=== PATIENT | male | born 1960 | race African-American/Black ===

== ENCOUNTER 2016-07-09 16:33 | Emergency (ER) | payer MEDICAID ==
[~2016-07-09] VITALS: Ht 182.9 cm; Wt 113.4 kg
[2016-07-09 17:33] LABS: BASOPHILS % (AUTO) 1.6 % (0.0-2.0); EOSINOPHILS % (AUTO) 1.6 % (0.0-3.0); LYMPHOCYTES % (AUTO) 30.1 % (20.0-45.0); MEAN CORPUSCULAR HEMOGLOBIN 33.8 PG (27.0-31.0); MEAN CORPUSCULAR HGB CONC 34.5 G/DL (32.0-36.0); MEAN CORPUSCULAR VOLUME 98 FL (80-99); MEAN PLATELET VOLUME 8.7 FL (6.5-10.1); MONOCYTES % (AUTO) 6.7 % (1.0-10.0); PLATELET COUNT 137 K/UL (150-450); RED BLOOD COUNT 4.28 M/UL (4.70-6.10); RED CELL DISTRIBUTION WIDTH 13.8 % (11.6-14.8); WHITE BLOOD COUNT 5.8 K/UL (4.8-10.8)
[2016-07-09 17:42] LABS: INR 2.8 (0.9-1.1); PROTHROMBIN TIME 29.4 SEC (9.30-11.50)
[2016-07-09] MEDS ORDERED: Cephalexin 500mg cap ORAL ONE (17:45)
[2016-07-09 18:01] LABS: ALANINE AMINOTRANSFERASE 29 U/L (3-41); ANION GAP 16 (5-15); ASPARTATE AMINO TRANSFERASE 40 U/L (5-40); CALCIUM 9.6 mg/dL (8.6-10.2); CARBON DIOXIDE 23 mEQ/L (20-30); CHLORIDE 103 mEQ/L (98-107); CREATININE 1.3 mg/dL (0.7-1.2); GLOMERULAR FILTRATION RATE > 60 mL/min (>60); HEMOLYSIS 7; POTASSIUM 3.5 mEQ/L (3.4-4.9); SODIUM 142 mEQ/L (135-145); TOTAL PROTEIN 7.6 g/dL (6.6-8.7)
[2016-07-09 18:02] VITALS: BP 111/87
[2016-07-09] MEDS ORDERED: KEFLEX500 MG ORAL (18:17)
[2016-07-09] MEDS ORDERED: TYLENOL325 MG ORAL (18:18)
[2016-07-09 20:14] VITALS: BP 100/83
--- NOTE | 2016-07-09 20:31 | Emergency Room Report ---
History of Present Illness General Chief Complaint: Alcohol Intoxication Source: Patient Present Illness HPI Patient's 56 year-old male who presented after increased leg pain. Patient was noted to be taking Coumadin. He reported having increased left ankle pain after an injury several months ago. Patient stated that he had been having persistent pain to his ankle. He reports drinking alcohol recently. he denies any fever. He had been having increased cough. The patient prior history of valve replacement surgery. The patient is taking Coumadin. Allergies: Coded Allergies: No Known Allergies (Unverified , 08/04/15) Patient History Reviewed Nursing Documentation: PMH: Agreed, PSxH: Agreed Nursing Documentation-PMH Hx Cardiac Problems: Yes Hx Hypertension: Yes Hx Cerebrovascular Accident: Yes Physical Exam Vital Signs Date Time Temp Pulse Resp B/P Pulse Ox O2 Delivery O2 Flow Rate FiO2 07/09/16 16:29 98.4 100 18 100/84 99 Room Air Medical Decision Making Diagnostic Impression: Primary Impression: Acute alcoholic intoxication Additional Impressions: Ankle sprain Pneumonia ER Course Patient presented for ankle pain. Patient presented for leg and ankle pain. Differential diagnosis included was not limited to vascular insufficiency, fracture, osteomyelitis, sprain, deep venous thrombosis. X-ray imaging of the ankle was obtained which showed a healed fracture. Patient noted have some widening of ankle mortise. A chest x-ray was ordered of the patient's persistent cough. A chest x-ray one view interpreted by me showed a left lung infiltrate. Patient was given oral antibiotics. He is given prescription for further antibiotics.The patient is advised to follow up with primary care doctor in 1-2 days. Patient is advised to return if any worsening condition or if any changes in status that are concerning. Chest X-Ray Diagnostic Results EP Interpretation: Yes Findings: no effusion, no pneumothorax, no acute cardiopulmonary disease Number of Views: 1 Last Vital Signs Date Time Temp Pulse Resp B/P Pulse Ox O2 Delivery O2 Flow Rate FiO2 07/09/16 18:02 17 111/87 99 Room Air 07/09/16 16:29 98.4 100 Status: improved Disposition: HOME, SELF-CARE Condition: Stable Scripts Acetaminophen (Tylenol) 325 Mg Tablet 650 MG ORAL Q6H Y for Prn Pain/Headache/Temp > 101, #30 TAB 0 Refills Prov: Berto Magallanes 07/09/16 Cephalexin* (KEFLEX*) 500 Mg Capsule 500 MG ORAL EVERY 6 HOURS, #28 CAP 0 Refills Prov: Berto Magallanes 07/09/16 Referrals: Keanu LAGOS,REFERRING (PCP) Patient Instructions: Alcohol Intoxication, [id number], Community-Acquired Pneumonia, Adult Berto Magallanes July 09, 2016 20:31
[2016-07-09 22:01] VITALS: BP 98/79
[2016-07-10 00:24] VITALS: BP 99/87
[2016-07-10 02:03] VITALS: BP 105/82
[2016-07-10 02:11] VITALS: BP 111/87
--- NOTE | 2016-07-10 11:46 | Diagnostic Imaging Report ---
Indication: Pain Comparison: None Findings: 3 views of the left ankle obtained. There is evidence of old healed fracture involving the distal fibula. The area of the deltoid ligament is abnormal. There is increased space between the medial malleolus and the medial edge of the talus suggesting deltoid ligament laxity or disruption. Vascular calcifications are present. There is generalized soft tissue swelling. Impression: No acute fracture identified. Old fracture of the lateral malleolus noted. Suspected deltoid ligament injury. Acuity of this finding is not known. Soft tissue swelling. Osteopenia
--- NOTE | 2016-07-10 12:18 | Diagnostic Imaging Report ---
Indication: Cough Comparison: None A single view chest radiograph was obtained. Findings: There is no focal consolidation identified. There is generalized prominence of the interstitium and pulmonary vascularity with cardiomegaly, findings that suggest interstitial edema. Sternotomy is noted. Please correlate clinically. Bones are osteopenic. Impression: Suspected interstitial edema due to left heart failure. Please correlate clinically
== END 2016-07-10 02:11 | disposition home or self-care (01) ==
LOC: EDBD 16:33 → EMR 16:55
DX: F10.129 Alcohol abuse with intoxication, unspecified (principal); S93.402A Sprain of unspecified ligament of left ankle, initial encounter; X58.XXXA Exposure to other specified factors, initial encounter; Y93.9 Activity, unspecified; Y99.9 Unspecified external cause status; J18.9 Pneumonia, unspecified organism; I10 Essential (primary) hypertension; Z86.73 Personal history of transient ischemic attack (TIA), and cerebral infarction without residual deficits
CPT/HCPCS: 36415; 71010; 80053; 85025; 85610; 85730; 99284